=== PATIENT | female | born 1960 | race Caucasian/White ===

== ENCOUNTER 2018-05-14 00:04 | Emergency (ER) | payer OTHER, MEDICAID ==
[~2018-05-14] VITALS: Ht 152.4 cm; Wt 72.1 kg
[2018-05-14 00:06] VITALS: Ht 152.4 cm; Wt 72.1 kg
[2018-05-14 00:58] LABS: BASOPHIL % 0.5 % (0-2); PLATELET COUNT 304 x10^3mcL (130-400); RED CELL DISTRIBUTION WIDTH 13.3 % (11.5-14.5)
[2018-05-14 00:58] LABS: microscopic required? YES; urine erythrocyte NEGATIVE (NEGATIVE)
[2018-05-14 01:07] LABS: ALBUMIN 3.6 g/dL (3.4-5.0); ALKALINE PHOSPHATASE 108 U/L (46-116); ALT/SGPT 21 U/L (14-59); AST/SGOT 14 U/L (15-37); BILIRUBIN TOTAL 0.6 mg/dL (0.20-1.00); CALCIUM 9.1 mg/dL (8.5-10.1); CARBON DIOXIDE 28.6 mmol/L (21-32); CHLORIDE SERUM 104 mmol/L (98-107); CREATININE SERUM 0.9 mg/dL (0.6-1.0); GFR1 > 60 mL/min; GLUCOSE SERUM 117 mg/dL (74-106); LIPASE 217 IU/L (73-393); POTASSIUM SERUM 3.5 mmol/L (3.5-5.1); SODIUM SERUM 133 mmol/L (136-145); TOTAL PROTEIN, SERUM 7.8 g/dL (6.4-8.2)
[2018-05-14 03:41] VITALS: BP 93/50
== END 2018-05-14 03:41 | disposition home or self-care (01) ==
LOC: ED 00:04
PROVIDERS: Emergency Medicine
DX: K57.92 Diverticulitis of intestine, part unspecified, without perforation or abscess without bleeding (principal); Z90.49 Acquired absence of other specified parts of digestive tract
CPT/HCPCS: J0500; J1885; J2270; J2405; J3490; J7030